=== PATIENT | female | born 1985 | race Caucasian/White ===

== ENCOUNTER → 2016-05-28 | Outpatient (CLI) | payer BC | LOC: LAB.O 08:12 | PROVIDERS: ATTEND Nurse Practitioner Family | DX: E53.8 Deficiency of other specified B group vitamins (principal); R53.83 Other fatigue; Z13.9 Encounter for screening, unspecified ==

== ENCOUNTER 2016-07-08 12:09 | Emergency (ER) | payer BC ==
[2016-07-08 12:29] VITALS: TEMP 97.8
--- NOTE | 2016-07-08 13:01 | ED.PDOC ---
History of Present Illness - General Chief Complaint: Neuro Symptoms/Deficits Stated Complaint: dizzy, nausea Time Seen by Provider: 07/08/16 12:45 Source: patient, RN notes reviewed, Vital Signs reviewed - History of Present Illness Initial Comments: Aysha Gale 31 y/o female stated that felt dizzy for the last 2 weeks seen by her primary md was given steroid shots .Stated when she got up and move her head this morning started having dizzy symptoms again. Timing/Duration: 1-3 hours Severity: moderate Improving Factors: rest Worsening Factors: movement Associated Symptoms: other - tinnitus Allergies/Adverse Reactions: Allergies NO KNOWN ALLERGY Allergy (Verified 07/08/16 12:29) Home Medications: Ambulatory Orders Meclizine HCl [Meclizine 25] 50 mg PO TID PRN #60 tab 07/08/16 predniSONE 10 mg PO BID #10 tab 07/08/16 Review of Systems - Review of Systems Constitutional: States: no symptoms reported EENTM: States: see HPI Respiratory: States: no symptoms reported Cardiology: States: no symptoms reported Gastrointestinal/Abdominal: States: no symptoms reported Genitourinary: States: no symptoms reported Musculoskeletal: States: no symptoms reported Skin: States: no symptoms reported Neurological: States: see HPI, other - dizziness Endocrine: States: no symptoms reported Hematologic/Lymphatic: States: no symptoms reported Past Medical History (General) - Patient Medical History Hx Congestive Heart Failure: No Hx Diabetes: No Hx Other PMH: Yes - hypothyroidism Surgical History: other - btl - Vaccination History Hx Tetanus, Diphtheria Vaccination: Yes Hx Influenza Vaccination: Yes - Social History Hx Tobacco Use: Yes Hx Alcohol Use: No Hx Substance Use: No Hx Substance Use Treatment: No Hx Depression: No - Activities of Daily Living Hospice Agency (if applicable):: None - Female History Patient is a Female of Child Bearing Age (10 -59 yrs old): Yes Hx Last Menstrual Period: 06/14/16 Patient : No Family Medical History - Family History Mother Family History: No Known Physical Exam - Physical Exam General Appearance: Alert, No apparent distress, Other - speech fluent Eye Exam: bilateral normal Ears, Nose, Throat: hearing grossly normal, normal ENT inspection, normal pharynx Neck: non-tender, full range of motion Respiratory: chest non-tender, lungs clear, normal breath sounds, no respiratory distress Cardiovascular/Chest: normal peripheral pulses, regular rate, rhythm, no murmur Peripheral Pulses: radial,right: 2+, radial,left: 2+ Gastrointestinal/Abdominal: normal bowel sounds, non tender, soft Back Exam: normal inspection, no CVA tenderness, no vertebral tenderness Extremity: normal range of motion, non-tender, normal inspection Neurologic: no motor/sensory deficits, alert, normal mood/affect, oriented x 3 Skin Exam: normal color, warm/dry Lymphatic: no adenopathy Departure - Departure Clinical Impression: Vertigo, benign positional Qualifiers: Laterality: right Qualified Code(s): H81.11 - Benign paroxysmal vertigo, right ear Time of Disposition: 13:07 Disposition: Discharge to Home or Self Care Condition: Good Departure Forms: ED Discharge - Pt. Copy, Patient Portal Self Enrollment Instructions: Vertigo (Alternative Therapy), Benign Paroxysmal Positional Vertigo, DI for Vertigo, DI for Benign Paroxysmal Positional Vertigo Referrals: CATRACHITA VAILA [Primary Care Provider] - 1-2 Weeks Prescriptions: Meclizine HCl [Meclizine 25] 50 mg PO TID PRN #60 tab PRN Reason: Dizziness predniSONE 10 mg PO BID #10 tab Home Medications: Ambulatory Orders Meclizine HCl [Meclizine 25] 50 mg PO TID PRN #60 tab 07/08/16 predniSONE 10 mg PO BID #10 tab 07/08/16 Additional Instructions: Follow up with Dr. Avila 07/09/2016 patient to call for appointment
[2016-07-08] MEDS ORDERED: PROMETHAZINE HCL INJ 25 MG/ML VIAL IM ONE (13:05)
[2016-07-08] MEDS ORDERED: DEXAMETHASONE INJ 4 MG/ML VIAL IM ONE (13:06)
[2016-07-08 13:49] VITALS: BP 117/77; O2SAT 98
== END 2016-07-08 13:49 | disposition home or self-care (01) ==
LOC: ER 12:09
DX: H81.11 Benign paroxysmal vertigo, right ear (principal); Z87.891 Personal history of nicotine dependence; E03.9 Hypothyroidism, unspecified